=== PATIENT | male | born 1955 | race Caucasian/White ===

== ENCOUNTER → 2016-09-26 | Day surgery (SDC) | payer OTHER ==
[~2016-09-26] VITALS: Ht 177.8 cm; Wt 89.4 kg
[~2016-09-26] MED LIST: CADUET 10 MG-41 EACH PO; LISINOPRIL-HCT1 EAC1 PO
--- NOTE | 2016-09-26 14:14 | Operative Report ---
Operative/Inv Procedure Report Surgery Date: 09/26/16 Name of Procedure: Cataract extraction lens implantation trabeculectomy mitomycin-C right eye Pre-Operative Diagnosis: Age-related cataract and chronic angle closure glaucoma right eye 20/250 vision Post-Operative Diagnosis: Same Estimated Blood Loss: none Surgeon/Roller Engraver: DEREK SWEET MD Anesthesia: local monitored anesthesi Complications: None Operative/Procedure Note Note: The patient had uncontrolled intraocular pressure and on maximal medical therapy. He was consented for trabeculectomy of the right eye with mitomycin-C. Mitomycin was used in this case because the patient was also having cataract surgery. The patient was brought to the operating room and standard monitoring equipment was attached. The patient was prepped and draped in the usual fashion for sterile intraocular surgery. A lid speculum was used to retract the lids. A small temporal incision was made with an I- knife and non-preserved lidocaine was introduced into the anterior chamber to provide anesthesia. The patient was asked to look down. Conjunctiva and Tenon's tissue was opened at the 12 o'clock position using non-toothed forceps and a Vannas scissors. A fornix based conjunctival peritomy was continued using Zackery's scissors. Additional anesthesia was achieved by infusing a 50:50 mixture of 2 percent lidocaine and 0.75 Marcaine which had been mixed previously underneath the conjunctiva and tenon's tissue. The sclera at the limbus was cleaned off using a 69 blade and a Weck-Abby sponge. A partial thickness groove was made tangential to the limbus approximately 1.5 mm back using the same 69 blade. A crescent knife was used to tunnel from this incision into clear cornea and then the anterior chamber was entered with a 2.4 mm keratome. 1 mL of non-preserved lidocaine was introduced into the anterior chamber to provide anesthesia. The anterior chamber was then filled and deepened with viscoelastic. A curvilinear capsulorrhexis was achieved using a 30-gauge needle and is a cystotome and capsulorrhexis was finished using a Utrata forceps. The lens was then hydrodissected with balanced salt solution and found to be rotatable. The lens was emulsified using phacoemulsification and a modified four-quadrant cracking technique. The residual cortical material was removed using automated irrigation and aspiration and as much of the anterior capsular rim was cleaned as well as possible. The posterior capsule was cleaned first with the automated machine on a low setting and then manually with a Lauri squeegee. The capsular bag was deepened with viscoelastic. The lens a Technis 1 23.0 diopter placed into the bag under direct visualization and rotated so that the haptics were at 12 and 6:00. Several punches of the posterior wound lip were taken with a Tiffany Descemet punch. A Gleason forceps was used to grasp the iris and a peripheral iridectomy was fashioned using the Vannas scissors. The trabeculectomy flap was sutured using 2 interrupted 10-0 nylon sutures whose knots were trimmed and buried. The flap was assessed for flow but no additional sutures were placed. Mitomycin-C 0.4 mg/mL was placed on several previously cut Weck-Abby sponges and held underneath the tenons fascia for approximately 120 seconds keeping the edge of the conjunctival surface away from the mitomycin. The instruments used to handle the mitomycin were removed from the field and the area copiously irrigated with balanced salt solution. The conjunctiva was reapproximated to the eye wall using 4 interrupted 10-0 nylon sutures whose knots were trimmed and rotated underneath the tissue. The eye was pressurized to an adequate tone by introducing balanced salt solution into the anterior chamber. This caused the bleb to elevate. The bleb area was assessed for leaks and since there were none the the lid speculum was removed. The eye was patched over antibiotic, steroid and a combination of antibiotic and steroid ointment. The eye was then shielded. Patient was removed from the operating room in stable condition and brought to same-day surgery having tolerated the procedure well.
== END ==
LOC: STS 01:11
DX: H25.9 Unspecified age-related cataract (principal); H40.2210 Chronic angle-closure glaucoma, right eye, stage unspecified; H21.2 Degeneration of iris and ciliary body; I10 Essential (primary) hypertension; E78.00 Pure hypercholesterolemia, unspecified
CPT/HCPCS: J2001; J2250; V2632

== ENCOUNTER 2017-12-16 12:11 | Emergency (ER) | payer OTHER ==
[~2017-12-16] VITALS: Ht 177.8 cm; Wt 83.0 kg
[~2017-12-16 12:11] MED LIST changes: +DIAMOX SEQUELS500 MG PO
--- NOTE | 2017-12-16 12:33 | ED SYNCOPE COMPLAINT ---
History of Present Illness General Chief Complaint: Syncope and Near-Syncope Stated Complaint: BIBA NEAR SYNCOPE AT [facility] Source: patient, family Exam Limitations: no limitations Vital Signs & Intake/Output Vital Signs & Intake/Output Vital Signs Date Time Temp Pulse Resp B/P B/P Pulse O2 O2 Flow FiO2 Mean Ox Delivery Rate 12/16 1629 98.4 60 18 121/67 96 12/16 1221 98 Room Air 12/16 1212 98.0 67 18 136/70 98 Room Air Allergies Coded Allergies: No Known Allergies (09/21/16) Reconcile Medications Amlodipine/Atorvastatin (Caduet 10 MG-40 MG Tablet) 10 MG-40 MG TABLET 1 TAB PO DAILY HTN / CHOLESTEROL (Reported) Lisinopril/Hydrochlorothiazide (Lisinopril-Hctz 20-25 MG Tab) 20 MG-25 MG TABLET 1 TAB PO DAILY HTN (Reported) Tamsulosin HCl 0.4 MG CAP.ER.24H 1 CAP PO DAILY (Reported) Triage Note: 62M REPORTS AURA SENSATION AND NEAR SYNCOPAL EPISODE WHILE AT [facility] TODAY. REPORTS HE DID NOT EAT BREAKFAST TODAY. DENIES CP AT THE TIME, BUT DID BECOME CLAMMY DURING EPISODE. DENIES LOC BUT SLIGHT VISUAL DISTURBANCES. SPEECH CLEAR ON ARRIVAL, GCS 15. STRENGTH 5/5 TO ALL EXTREMITIES, NO LOSS OF B/B. DENIES SOB OR HEADACHE. S Triage Nurses Notes Reviewed? yes HPI: Patient was at [facility] this morning, he did not eat breakfast. He began to feel lightheaded. He denies any chest pain or palpitations. There is no shortness of breath. Patient got up to get communion and while he was standing there the symptoms worsen and he had a witnessed syncopal episode. Patient was lowered to the ground. Patient woke up as soon as he was on the ground. Patient is currently feeling better. Past History Travel History Traveled to [place] past 21 day No Medical History Any Pertinent Medical History? see below for history Neurological: NONE EENT: NONE Cardiovascular: hypertension, hyperlipidemia Respiratory: NONE Gastrointestinal: NONE Hepatic: NONE Renal: NONE Musculoskeletal: NONE Psychiatric: NONE Endocrine: NONE Surgical History Surgical History: non-contributory Psychosocial History What is your primary language [place] Tobacco Use: Never used ETOH Use: denies use Illicit Drug Use: denies illicit drug use Family History Hx Contributory? No Review of Systems Review of Systems Constitutional: Reports: no symptoms. EENTM: Reports: no symptoms. Respiratory: Reports: no symptoms. Cardiovascular: Reports: no symptoms. GI: Reports: no symptoms. Genitourinary: Reports: no symptoms. Musculoskeletal: Reports: no symptoms. Skin: Reports: no symptoms. Neurological/Psychological: Reports: see HPI. All Other Systems: Reviewed and Negative Physical Exam Physical Exam General Appearance: well developed/nourished, alert, awake, anxious Head: atraumatic, normal appearance Eyes: Bilateral: PERRL, EOMI. Ears, Nose, Throat: normal pharynx, normal ENT inspection, hearing grossly normal Neck: normal inspection, supple, full range of motion Respiratory: normal breath sounds, chest non-tender, no respiratory distress, lungs clear Cardiovascular: regular rate/rhythm, normal peripheral pulses Gastrointestinal: normal bowel sounds, soft, non-tender, no organomegaly Back: normal inspection, normal range of motion Extremities: normal inspection, normal capillary refill, normal range of motion, no edema Psychiatric: awake, alert, oriented x 3 Cranial Nerves: normal hearing, normal speech, PERRL Coordination/Gait: normal gait Motor/Sensory: no motor/sensory deficits Skin: intact, normal color, warm/dry Core Measures ACS in differential dx? No CVA/TIA Diagnosis: No Sepsis Present: No Sepsis Focused Exam Completed? No Progress Differential Diagnosis: AMI, aortic dissection, aortic valve, drug induced syncope, orthostatic syncope, pulmonary embolus, seizure, sick sinus syndrome Plan of Care: Orders Procedure Date/time Status Heart Healthy Diet 12/16 D Active TROPONIN LEVEL 12/16 1549 Complete EKG 12/16 1549 Active Telemetry/Pharmacy Picking Technician 12/16 1232 Active TROPONIN LEVEL 12/16 1222 Complete COMPREHENSIVE METABOLIC PANEL 12/16 1222 Complete CBC WITHOUT DIFFERENTIAL 12/16 1222 Complete EKG 12/16 1222 Active Laboratory Tests 12/16/17 1616: Troponin I < 0.01 12/16/17 1225: Anion Gap 7, Estimated GFR > 60, BUN/Creatinine Ratio 42.0 H, Glucose 87, Calcium 7.2 L, Total Bilirubin 0.4, AST 14 L, ALT 27, Alkaline Phosphatase 31, Troponin I < 0.01, Total Protein 5.2 L, Albumin 2.8 L, Globulin 2.4, Albumin/ Globulin Ratio 1.2, CBC w Diff NO MAN DIFF REQ, RBC 3.13 L, MCV 87.3, MCH 29.3, MCHC 33.5, RDW 14.4, MPV 8.3, Gran % 65.4, Lymphocytes % 26.3, Monocytes % 6.8, Eosinophils % 1.1, Basophils % 0.4, Absolute Granulocytes 2.5, Absolute Lymphocytes 1.0 L, Absolute Monocytes 0.3, Absolute Eosinophils 0, Absolute Basophils 0 Initial ED EKG: NSR, nonspecific ST T wave chg Prior EKG: unchanged Repeat EKG: unchanged Rhythm Strip: normal sinus rhythm Departure Departure Disposition: HOME OR SELF CARE Condition: Stable Clinical Impression Primary Impression: Syncope Referrals: Latrice Gray DO (PCP/Family) Additional Instructions: Drink plenty of fluids. Follow up with her primary care physician. Return if you develops any further symptoms or for any concerns. Departure Forms: Customer Survey General Discharge Information
[2017-12-16 12:36] LABS: ABSOLUTE BASOPHIL COUNT 0 /CUMM (0.0-0.2); ABSOLUTE EOSINOPHIL COUNT 0 /CUMM (0.0-0.7); ABSOLUTE GRANULOCYTE CT 2.5 /CUMM (1.4-6.5); ABSOLUTE MONOCYTE COUNT 0.3 /CUMM (0.10-0.60); BASOPHIL % 0.4 % (0.0-2.0); EOSINOPHIL % 1.1 % (0-5); GRANULOCYTE % 65.4 % (42.2-75.2); HEMATOCRIT 27.3 % (42-52); MEAN CORPUSCULAR HGB 29.3 PG (27.0-31.0); MEAN CORPUSCULAR HGB CONC 33.5 G/DL (33.0-37.0); MEAN CORPUSCULAR VOLUME 87.3 FL (80.0-94.0); MEAN PLATELET VOLUME 8.3 FL (7.4-10.4); PLATELET COUNT 135 /CUMM (130-400); RBC DISTRIBUTION WIDTH 14.4 % (11.5-14.5); RED BLOOD CELL CT 3.13 /CUMM (4.70-6.10); WHITE BLOOD CELL COUNT 3.8 /CUMM (4.8-10.8)
[2017-12-16] MEDS ORDERED: TAMSULOSIN HCL0.4 M1 PO (12:55)
[2017-12-16 16:29] VITALS: BP 121/67
== END 2017-12-16 17:10 ==
LOC: ERH 12:11
PROVIDERS: Emergency Medicine
DX: R55 Syncope and collapse (principal)
CPT/HCPCS: 93005; 93010